=== PATIENT | female | born 1965 | race African-American/Black ===

== ENCOUNTER 2023-09-21 16:05 | Emergency (ER) | payer OTHER ==
[2023-09-21 16:12] VITALS: BP 137/75; PULSE 82; RESP 18; TEMP 98.4; BMI 28.3
== END 2023-09-21 16:51 | disposition home or self-care (01) ==
LOC: JERFT 16:05
DX: R21 Rash and other nonspecific skin eruption (principal)
CPT/HCPCS: 99282-25

== ENCOUNTER 2023-12-31 15:29 | Emergency (ER) | payer OTHER ==
[2023-12-31 15:40] VITALS: BP 158/83; PULSE 75; RESP 20; TEMP 97.5; BMI 29.6
[2023-12-31] MEDS ORDERED: IBUPROFEN 400 MG TABLET (FP) PO ONE (16:12)
[2023-12-31] MEDS ORDERED: ACETAMINOPHEN 500 MG TABLET (FP) ONE (16:13)
[2023-12-31] MEDS ORDERED: DIPHTH,PERTUSS(ACELL),TET 0.5 ML DISP.SYRIN IM ONE (16:13)
[2023-12-31] MEDS: DIPHTH,PERTUSS(ACELL),TET 0.5 ML DISP.SYRIN IM ONE (16:23)
[2023-12-31] MEDS: IBUPROFEN 400 MG TABLET (FP) PO ONE (16:24)
[2023-12-31] MEDS: ACETAMINOPHEN 500 MG TABLET (FP) PO ONE (16:24)
== END 2023-12-31 17:35 | disposition home or self-care (01) ==
LOC: JERFT 15:29
PROC: 3E0234Z Introduction of Serum, Toxoid and Vaccine into Muscle, Percutaneous Approach (ICD-10-PCS; principal; 2023-12-31)
DX: S61.432A Puncture wound without foreign body of left hand, initial encounter (principal); W22.8XXA Striking against or struck by other objects, initial encounter; Z23 Encounter for immunization
CPT/HCPCS: 73130-TC-LT-FY; 90471; 90715; 99283-25

== ENCOUNTER 2024-01-03 07:37 | Emergency (ER) | payer OTHER ==
[2024-01-03 07:47] VITALS: RESP 17; TEMP 97.7; BMI 29.6
[2024-01-03 07:48] VITALS: BP 107/66; PULSE 68
== END 2024-01-03 08:25 | disposition home or self-care (01) ==
LOC: JERFT 07:37 → JER 07:37 → JERFT 08:25
DX: S61.432D Puncture wound without foreign body of left hand, subsequent encounter (principal); X58.XXXA Exposure to other specified factors, initial encounter
CPT/HCPCS: 99281-25